=== PATIENT | female | born 1960 | race Caucasian/White ===

== ENCOUNTER 2020-08-04 18:45 | Inpatient (IN) | payer OTHER ==
[~2020-08-04] VITALS: Ht 165.1 cm; Wt 133.3 kg
[2020-08-04] MEDS ORDERED: DICYCLOMINE HCL 10 MG CAP ONE (19:23)
[2020-08-04] MEDS ORDERED: DICYCLOMINE HCL 10 MG CAP PO ONE ×2 (19:30→22:30)
[2020-08-04] MEDS ORDERED: PIPERACILLIN-TAZOB 3.375GM 100 ML IV ONE (22:00)
[2020-08-04] MEDS ORDERED: NITROGLYCERIN 0.4 MG SL TAB SL PRN (22:30)
[2020-08-04] MEDS ORDERED: DOCUSATE SOD 100 MG CAP PO PRN (22:30)
[2020-08-04] MEDS ORDERED: ACETAMINOPHEN 325 MG TAB PO PRN (22:30)
[2020-08-04] MEDS ORDERED: SODIUM CHLORIDE 0.9% 1,000 ML IV SCH (22:30)
[2020-08-04] MEDS ORDERED: MORPHINE SULF INJ 2 MG/ML SYRINGE 1ML IV PRN (22:30)
[2020-08-04 22:33] LABS: Urine Bacteria MANY /hpf (None Seen); Urine Blood Negative /uL (Negative); Urine Hyaline Cast FEW /lpf (0 - 2); Urine Mucus FEW (None Seen); Urine Specific Gravity 1.034 (1.001-1.035); Urine WBC 4 /hpf (0 - 5)
[2020-08-04 22:39] LABS: Basophils # (auto) 0 10 ^3/uL (0-0.2); Basophils % (auto) 0.5 % (0.0-2.0); Eosinophils # (auto) 0.1 10 ^3/uL (0-0.8); Eosinophils % (auto) 1.6 % (0.0-7.0); Hemoglobin 12.8 g/dL (12.2-16.2); Lymphocytes % (auto) 13.4 % (10.0-50.0); Mean Corpuscular Hemoglobin 28.9 pg (28.0-32.0); Mean Corpuscular Hgb Conc. 32.8 g/dL (32.0-36.0); Mean Corpuscular Volume 88.1 fL (80.0-100.0); Monocytes # (auto) 0.5 10 ^3/uL (0-1.3); Monocytes % (auto) 6.6 % (0.0-12.0); Neutrophils # (auto) 6.1 10 ^3/uL (1.6-8.6); Neutrophils % (auto) 77.9 % (37.0-80.0); Nucleated Red Blood Cells % 0.1 %; Platelet Count (auto) 228 10^3/uL (140-450); Red Blood Cells 4.42 10^6/uL (4.0-5.20); Red Cell Distribution Width 13.9 % (11.8-14.3); White Blood Cell 7.8 10^3/uL (4.4-10.8)
[2020-08-04] MEDS ORDERED: POTASSIUM CHL 20 Meq TABLET PO ONE (22:45)
[2020-08-04 22:48] LABS: Albumin 3.9 g/dL (3.4-5.0); Amylase 40 U/L (25-115); Anion Gap 5 (5-15); Blood Urea Nitrogen 10 mg/dL (7-18); Carbon Dioxide 28 mmol/L (21-32); Chloride 106 mmol/L (98-107); Glucose 106 mg/dL (74-106); Lipase 104 U/L (73-393); Potassium 3.3 mmol/L (3.5-5.1); Sodium 139 mmol/L (136-145)
[2020-08-04 22:52] LABS: Amphetamine Screen, Urine NEGATIVE (NEGATIVE); Barbiturate Scree,Urine NEGATIVE (NEGATIVE); Benzodiazephine Screen, Urine NEGATIVE (NEGATIVE); Cannabinoid Screen, Urine NEGATIVE (NEGATIVE); Cocaine Screen, Urine NEGATIVE (NEGATIVE); Opiate Scree,Urine POSITIVE (NEGATIVE); Phencyclidine Screen, Urine NEGATIVE (NEGATIVE)
[2020-08-04 22:54] LABS: INR 1.07 (0.9-1.15); Partial Thromboplastin Time 27.8 sec (23.0-31.2)
[2020-08-04 22:55] LABS: Alanine Aminotransferase 18 U/L (13-56); Alkaline Phosphatase 114 U/L (45-117); Aspartate Aminotransferase 11 U/L (15-37); BUN/Creatinine Ratio 12.7; Bilirubin, Total 0.6 mg/dL (0.2-1.0); GFR African American 95 mL/min; GFR Non-African American 79 mL/min; Total Protein 7.4 g/dL (6.4-8.2)
--- NOTE | 2020-08-05 00:20 | NUR ---
Patient Brought to Unit From ER Via Wheelchair Patient is AOx4 and no s/s of distress or SOB noted. Patient complains of abdominal pain of 6/10. Patient will be given PRN medication for pain as prescribed. Patient is ambulatory without any assist. Patient bed locked in lowest position and HOB at 30 degrees. POC discussed with patient, patient verbally agreed to understanding. Tele monitor is #58 and sinus rhythm in 70's/ Will continue to monitor.
[2020-08-05 01:20] VITALS: BP 140/58
[2020-08-05] MEDS: HYDROcodone-ACET 5/325MG TAB PO PRN ×4 (01:37→20:20)
[2020-08-05] MEDS: ONDANSETRON HCL 4 MG/2 ML VIAL IV PRN ×2 (01:39→09:00)
[2020-08-05] MEDS ORDERED: OMEP-411 (04:05)
[2020-08-05] MEDS ORDERED: ATOR20TA50 PO (04:05)
[2020-08-05] MEDS ORDERED: IBU600T PO (04:05)
[2020-08-05] MEDS ORDERED: LISI30TA4 PO (04:05)
[2020-08-05] MEDS ORDERED: METF-371 PO (04:05)
[2020-08-05] MEDS ORDERED: ALPR0.255 PO (04:05)
[2020-08-05] MEDS ORDERED: MET50T PO (04:05)
[2020-08-05] MEDS ORDERED: SERT-160 PO (04:05)
[2020-08-05] MEDS ORDERED: ALBU108A5 INH (04:05)
[2020-08-05 05:00] VITALS: BP 107/65
[2020-08-05] MEDS ORDERED: PIPERACILLIN-TAZOB 3.375GM 100 ML IV SCH (06:00)
--- NOTE | 2020-08-05 07:35 | NUR ---
Opening Shift Note Assumed care of patient, awake and alert bed is locked and in lowest position , bed rails up x2 , call light is within reach. No S/S of distress/SOB or pain. Instructed on POC and to call for assistance PRN, will continue to monitor for changes Q1hr and PRN.
[2020-08-05 08:17] LABS: Basophils # (auto) 0 10 ^3/uL (0-0.2); Basophils % (auto) 0.4 % (0.0-2.0); Eosinophils # (auto) 0 10 ^3/uL (0-0.8); Eosinophils % (auto) 0.9 % (0.0-7.0); Hematocrit 34.5 % (36.0-46.0); Hemoglobin 11.7 g/dL (12.2-16.2); Lymphocytes # (auto) 0.8 10 ^3/uL (0.4-5.4); Lymphocytes % (auto) 13.6 % (10.0-50.0); Mean Corpuscular Hemoglobin 29.6 pg (28.0-32.0); Mean Corpuscular Hgb Conc. 33.9 g/dL (32.0-36.0); Mean Corpuscular Volume 87.2 fL (80.0-100.0); Monocytes # (auto) 0.5 10 ^3/uL (0-1.3); Monocytes % (auto) 8.1 % (0.0-12.0); Neutrophils # (auto) 4.3 10 ^3/uL (1.6-8.6); Nucleated Red Blood Cells % 0.1 %; Platelet Count (auto) 171 10^3/uL (140-450); Red Blood Cells 3.96 10^6/uL (4.0-5.20); Red Cell Distribution Width 13.7 % (11.8-14.3); White Blood Cell 5.6 10^3/uL (4.4-10.8)
[2020-08-05 08:26] LABS: Potassium 3.8 mmol/L (3.5-5.1)
[2020-08-05 08:36] LABS: Albumin 3.2 g/dL (3.4-5.0); Bilirubin, Total 0.5 mg/dL (0.2-1.0); Calcium 8.5 mg/dL (8.5-10.1); Total Protein 6.5 g/dL (6.4-8.2)
[2020-08-05 09:00] VITALS: BP 133/60
[2020-08-05] MEDS ORDERED: DEXTROSE (50%) 50ML SYRG IV PRN (09:30)
[2020-08-05] MEDS ORDERED: cefTRIAXone 1GM/50ML D5W 50 ML IV ONE (09:30)
[2020-08-05] MEDS: PANTOPRAZOLE 40 MG/10 ML VIAL INJ IV SCH (10:15)
[2020-08-05] MEDS: ENOXAPARIN SOD 40 MG/0.4 ML SYRINGE SC SCH (10:15)
[2020-08-05] MEDS: SOD CHL 0.9%/ KCL 20MEQ 1,000 ML IV SCH (10:16)
[2020-08-05] MEDS: InsuLIN REG 1unit/0.01ml Soln (100units/ml) SC SCH ×2 (12:00→17:47)
[2020-08-05] MEDS: ACCU-CHEK COMFORT CURVE STRIP VI SCH ×2 (12:00→17:46)
[2020-08-05 13:00] VITALS: BP 133/76
[2020-08-05] MEDS: metroNIDAZOLE 500MG/100ML 100 ML IV SCH ×2 (13:54→22:02)
[2020-08-05 17:00] VITALS: BP 129/59
--- NOTE | 2020-08-05 19:30 | NUR ---
Opening Shift Note Assumed care of patient, awake and alert x4. No S/S of distress/SOB or pain. NGT to [facility], 400 cc are in the NG cannister. Soriano is in place and hung below bladder, draining yellow urine. Instructed on POC and to call for assist PRN. Call light is within reach, will continue to monitor for changes Q1hr and PRN. Addendum: 08/06/20 at 0704 by JILLIAN ADAMS RN Disregard, charted on wrong patient.
[2020-08-05 22:00] VITALS: BP 137/50
[2020-08-06] MEDS: ACCU-CHEK COMFORT CURVE STRIP VI SCH ×4 (00:01→18:00)
[2020-08-06 05:00] VITALS: BP 135/58
[2020-08-06] MEDS: InsuLIN REG 1unit/0.01ml Soln (100units/ml) SC SCH ×4 (05:55→18:00)
[2020-08-06] MEDS: HYDROcodone-ACET 5/325MG TAB PO PRN ×3 (05:55→22:10)
[2020-08-06] MEDS: metroNIDAZOLE 500MG/100ML 100 ML IV SCH ×3 (05:55→22:10)
[2020-08-06] MEDS: SOD CHL 0.9%/ KCL 20MEQ 1,000 ML IV SCH ×2 (06:43→18:50)
--- NOTE | 2020-08-06 06:59 | NUR ---
Closing note Total NG tube output 400cc of light green drainage. SNOW drain 125cc of sanguinous fluid out. NGT remains to [facility]. Call light is within reach, will endorse care to dayshift. Addendum: 08/06/20 at 0704 by JILLIAN ADAMS RN Disregard, charted on wrong patient.
--- NOTE | 2020-08-06 07:03 | NUR ---
DISREGARD CLOSING AND OPENING NOTE FOR 08/05 AND 08/06 BY THIS RN, CHARTED ON THE WRONG PATIENT.
--- NOTE | 2020-08-06 07:04 | NUR ---
Patient is resting in bed, no S/S of pain or distress, call light is within reach. Endorsed care to Kira KENT.
--- NOTE | 2020-08-06 07:05 | NUR ---
Opening Shift Note: Assumed care of patient. Patient asleep at this time. No S/S of distress/SOB or pain. Respirations even and unlabored. Bed in lowest locked position, side rails up x 2, call light within reach. Patient instructed on POC and to call for assist PRN, will continue to monitor for changes Q1hr and PRN.
[2020-08-06 09:00] VITALS: BP 138/64
[2020-08-06] MEDS: ENOXAPARIN SOD 40 MG/0.4 ML SYRINGE SC SCH (10:30)
[2020-08-06] MEDS: cefTRIAXone 1GM/50ML D5W 50 ML IV SCH (10:30)
[2020-08-06] MEDS: PANTOPRAZOLE 40 MG/10 ML VIAL INJ IV SCH (10:30)
[2020-08-06] MEDS: MORPHINE SULFATE 4 MG/ML SYR/VIAL IV PRN (11:45)
--- NOTE | 2020-08-06 12:10 | NUR ---
Dr. Dimas at bedside talking to pt.
[2020-08-06 13:10] VITALS: BP 133/61
--- NOTE | 2020-08-06 15:00 | NUR ---
IV removal IV DC'd with clean sterile technique, catheter fully intact. Pressure dressing applied to site. Patient tolerated well.
--- NOTE | 2020-08-06 15:03 | NUR ---
IV insertion IV access obtained, via clean sterile technique by inserting 22 gauge catheter at left forearm after 1 attempt. IV secured properly. No trauma to site. Patient tolerated well.
[2020-08-06 16:47] VITALS: BP 140/89
--- NOTE | 2020-08-06 19:10 | NUR ---
CLOSING NOTE: PATIENT RESTING IN BED. NO S/S OF DISTRESS.
--- NOTE | 2020-08-06 19:40 | NUR ---
Opening Shift Note Assumed care of patient, awake and alert x4. No S/S of distress/SOB or pain. Instructed on POC and to call for assist PRN. Call light is within reach, will continue to monitor for changes Q1hr and PRN.
[2020-08-06 21:00] VITALS: BP 116/54
--- NOTE | 2020-08-06 21:54 | NUR ---
IV insertion IV access obtained, via clean sterile technique by inserting 22 gauge catheter at RFA after 2 attempt(s). IV secured properly. No trauma to site. Patient tolerated well. IV removal from LFA due to pain and tenderness to site IV DC'd with clean sterile technique, catheter fully intact. Pressure dressing applied to site. Patient tolerated well.
[2020-08-07] MEDS: ACCU-CHEK COMFORT CURVE STRIP VI SCH ×4 (00:11→18:10)
[2020-08-07 05:00] VITALS: BP 143/78
--- NOTE | 2020-08-07 05:05 | NUR ---
CHG wipes completed and complete linen change done.
[2020-08-07] MEDS: InsuLIN REG 1unit/0.01ml Soln (100units/ml) SC SCH ×4 (06:00→18:11)
[2020-08-07] MEDS: metroNIDAZOLE 500MG/100ML 100 ML IV SCH ×3 (06:11→21:06)
[2020-08-07 06:39] LABS: Basophils # (auto) 0 10 ^3/uL (0-0.2); Basophils % (auto) 0.5 % (0.0-2.0); Eosinophils # (auto) 0.1 10 ^3/uL (0-0.8); Hematocrit 32.4 % (36.0-46.0); Hemoglobin 10.8 g/dL (12.2-16.2); Lymphocytes # (auto) 0.7 10 ^3/uL (0.4-5.4); Mean Corpuscular Hemoglobin 29.4 pg (28.0-32.0); Mean Corpuscular Hgb Conc. 33.3 g/dL (32.0-36.0); Monocytes # (auto) 0.4 10 ^3/uL (0-1.3); Monocytes % (auto) 9.2 % (0.0-12.0); Neutrophils # (auto) 2.7 10 ^3/uL (1.6-8.6); Neutrophils % (auto) 70.3 % (37.0-80.0); Platelet Count (auto) 173 10^3/uL (140-450); Red Blood Cells 3.68 10^6/uL (4.0-5.20); Red Cell Distribution Width 14.1 % (11.8-14.3); White Blood Cell 3.9 10^3/uL (4.4-10.8)
[2020-08-07 06:50] LABS: INR 1.07 (0.9-1.15); Partial Thromboplastin Time 28.3 sec (23.0-31.2)
--- NOTE | 2020-08-07 06:55 | NUR ---
Spoke with Christina in pre-op, Milady is planning on doing a laparoscopic cholecystectomy possible open at 1000.
[2020-08-07 07:11] LABS: Albumin 2.9 g/dL (3.4-5.0); BUN/Creatinine Ratio 4.6; Bilirubin, Total 0.4 mg/dL (0.2-1.0); Calcium 8.4 mg/dL (8.5-10.1); Potassium 3.4 mmol/L (3.5-5.1); Total Protein 6.5 g/dL (6.4-8.2)
--- NOTE | 2020-08-07 07:30 | NUR ---
Opening Shift Note: Assumed care of patient, awake and alert. No S/S of distress/SOB. Bed in lowest locked position, side rails up x 2, call light within reach. Patient NPO at this time for procedure. Patient instructed on POC and to call for assist PRN, will continue to monitor for changes Q1hr and PRN.
[2020-08-07] MEDS: cefTRIAXone 1GM/50ML D5W 50 ML IV SCH (08:19)
[2020-08-07] MEDS: MORPHINE SULFATE 4 MG/ML SYR/VIAL IV PRN ×3 (08:19→21:00)
--- NOTE | 2020-08-07 08:40 | NUR ---
SPOKE WITH DR. GUADARRAMA. NEW ORDERS PLACED. SPOKE WITH HYDRAULIC MODELING ENGINEERYOLI RODRIGUEZ REGARDING NEW MED ORDERS. OKAY TO WAIT UNTIL AFTER PROCEDURE TO GIVE POTASSIUM.
[2020-08-07] MEDS ORDERED: POTASSIUM CHLORIDE 20 MEQ, LIDOCAINE 1% (LOCAL ANESTH.) 2 ML in SODIUM CHL 0.9% 100 ML IV ONE (08:45)
[2020-08-07] MEDS: PANTOPRAZOLE 40 MG/10 ML VIAL INJ IV SCH (08:46)
[2020-08-07] MEDS: ENOXAPARIN SOD 40 MG/0.4 ML SYRINGE SC SCH (08:46)
--- NOTE | 2020-08-07 09:45 | NUR ---
PATIENT TAKEN DOWN TO OR AT THIS TIME. STEAM CONDITIONER OPERATORYOLI RODRIGUEZ AWARE THAT SURGICAL CONSENTS ARE NOT SIGNED AT THIS TIME.
[2020-08-07] MEDS ORDERED: SUCCINYLCHOLINE CHLORIDE 20 MG/ML 10ML VIAL IV ONE (10:16)
[2020-08-07] MEDS ORDERED: ROCURONIUM 10MG/ML 10ML VIAL IV ONE (10:21)
[2020-08-07] MEDS ORDERED: PROPOFOL 10 MG/ML 20 ML IV ONE (10:21)
[2020-08-07] MEDS ORDERED: MIDAZOLAM HCL 1MG/1ML-2 ML VIAL ONE (10:21)
[2020-08-07] MEDS ORDERED: GLYCOPYRROLATE 0.2 MG/ML 1ML VIAL ONE (10:21)
[2020-08-07] MEDS ORDERED: fentaNYL CITRATE 100 MCG/2 ML VL ONE (10:21)
[2020-08-07] MEDS ORDERED: NEOSTIGMINE 1 MG/ML INJ (10mg/10ML VIAL) ONE (10:21)
[2020-08-07] MEDS ORDERED: ONDANSETRON HCL 4 MG/2 ML VIAL ONE (10:21)
[2020-08-07] MEDS ORDERED: MEPERIDINE HCL (25 MG/ML) 1ML VIAL ONE (10:21)
[2020-08-07] MEDS ORDERED: SODIUM CHLORIDE LOCK 10 ML ONE (10:21)
[2020-08-07] MEDS ORDERED: DexAMETHasone SOD PHOS 10MG/1ML VIAL INJ ONE (11:10)
--- NOTE | 2020-08-07 11:20 | NUR ---
Nutrition Assessment Est energy needs [id number] kcal (14-18 kcal/kg BW 99.8kg) Est protein needs 57-74g (1-1.3g/kg IBW 57kg) Will monitor and reassess prn. Addendum: 08/07/20 at [address] Amended: Links added.
--- NOTE | 2020-08-07 11:44 | NUR ---
PATIENT TRANSFERRED TO FLOOR BY TWO OR STAFF. PATIENT ASSESSED AT THIS TIME. TWO INCISIONS, MEDIAL ABDOMEN, SNOW DRAIN TO THE MEDIAL RIGHT SIDE. 90 ML DRAINED AT THIS TIME. CALL LIGHT IN REACH, BED ALARM ACTIVATED FOR PATIENT SAFETY. PATIENT EDUCATED TO CALL WHEN SHE NEEDS TO AMBULATED.
[2020-08-07] MEDS ORDERED: HYDROmorphone HCL 2 MG/ML VL ONE (11:54)
[2020-08-07] MEDS: HYDROmorphone HCL 2 MG/ML VL IV PRN ×3 (11:57→12:30)
[2020-08-07] MEDS ORDERED: MORPHINE SULFATE 4 MG/ML SYR/VIAL IV PRN (12:00)
[2020-08-07] MEDS ORDERED: METOCLOPRAMIDE HCL 5MG/ml INJ 2ml VIAL IV PRN (12:00)
[2020-08-07 13:00] VITALS: BP 155/62
[2020-08-07] MEDS: SOD CHL 0.9%/ KCL 20MEQ 1,000 ML IV SCH (14:57)
[2020-08-07] MEDS: HYDROcodone-ACET 5/325MG TAB PO PRN (14:58)
--- NOTE | 2020-08-07 15:47 | NUR ---
PATIENT REFUSING ABDOMINAL BINDER AT THIS TIME. PATIENT EDUCATED ON NEED FOR BINDER AT THIS TIME, PATIENT CONTINUALLY REFUSING.
--- NOTE | 2020-08-07 16:04 | NUR ---
SNOW DRAIN EMPTIED 90 ML BRIGHT RED BLOOD FROM SNOW DRAIN AT THIS TIME.
--- NOTE | 2020-08-07 16:31 | NUR ---
SNOW DRAIN 90 ML BLOOD EMPTIED FROM SNOW DRAIN AT THIS TIME. PATIENT HAS NOTED BLEEDING ON BANDAGE AROUND SITE OF DRAIN. SPOKE WITH CORPORATE TRAVEL AGENT AND PAGED DR. GEORGE AT THIS TIME. AWAITING CALL BACK.
--- NOTE | 2020-08-07 16:53 | NUR ---
SPOKE WITH MD RECEIVED CALL FROM DR. GEORGE AT THIS TIME. PER MD PLACE BINDER BACK ON PATIENT. MONITOR SNOW DRAIN OUTPUT.
[2020-08-07 17:00] VITALS: BP 154/70
--- NOTE | 2020-08-07 18:15 | NUR ---
SNOW DRAIN 90 ML OUTPUT. PATIENT PLACED BACK IN ABDOMINAL BINDER AND DRESSING AROUND SNOW REINFORCED. WILL CONTINUE TO MONITOR.
--- NOTE | 2020-08-07 18:49 | NUR ---
CLOSING NOTE: PATIENT RESTING IN BED. NO S/S OF DISTRESS. SNOW DRAINED AT THIS TIME, 50 ML
[2020-08-07 21:00] VITALS: BP 166/77
[2020-08-07] MEDS: METOPROLOL TARTRATE 50 MG TAB PO SCH (22:30)
[2020-08-08] MEDS: ACCU-CHEK COMFORT CURVE STRIP VI SCH ×5 (00:06→23:52)
[2020-08-08] MEDS: InsuLIN REG 1unit/0.01ml Soln (100units/ml) SC SCH ×5 (00:24→23:53)
[2020-08-08] MEDS: MORPHINE SULFATE 4 MG/ML SYR/VIAL IV PRN ×2 (00:59→04:47)
[2020-08-08] MEDS: SOD CHL 0.9%/ KCL 20MEQ 1,000 ML IV SCH ×2 (04:41→20:50)
[2020-08-08 05:00] VITALS: BP 188/87
[2020-08-08] MEDS: metroNIDAZOLE 500MG/100ML 100 ML IV SCH ×3 (06:55→22:06)
--- NOTE | 2020-08-08 07:13 | NUR ---
SNOW drain 250 out
[2020-08-08 07:28] VITALS: BP 122/68
--- NOTE | 2020-08-08 07:29 | NUR ---
BP reassessed after patient was medicated for pain and after ambulating back to bed from restroom and relaxing. New BP 122/68, HR 64. Care endorsed to day shift RN.
--- NOTE | 2020-08-08 08:57 | NUR ---
Unable to scan Morphine 2 mg IV push due to computer error, patient c/o of pain 10/10 to abdomen Morphine 2 mg given at 0857.
[2020-08-08] MEDS: PANTOPRAZOLE 40 MG/10 ML VIAL INJ IV SCH (09:19)
[2020-08-08 09:20] LABS: Basophils # (auto) 0 10 ^3/uL (0-0.2); Basophils % (auto) 0.1 % (0.0-2.0); Eosinophils # (auto) 0 10 ^3/uL (0-0.8); Hematocrit 32.1 % (36.0-46.0); Hemoglobin 10.9 g/dL (12.2-16.2); Lymphocytes # (auto) 0.3 10 ^3/uL (0.4-5.4); Lymphocytes % (auto) 3.9 % (10.0-50.0); Mean Corpuscular Hemoglobin 29.8 pg (28.0-32.0); Mean Corpuscular Hgb Conc. 33.8 g/dL (32.0-36.0); Monocytes # (auto) 0.5 10 ^3/uL (0-1.3); Monocytes % (auto) 6.5 % (0.0-12.0); Neutrophils # (auto) 6.4 10 ^3/uL (1.6-8.6); Neutrophils % (auto) 89.5 % (37.0-80.0); Nucleated Red Blood Cells % 0.1 %; Platelet Count (auto) 233 10^3/uL (140-450); Red Blood Cells 3.64 10^6/uL (4.0-5.20); Red Cell Distribution Width 13.4 % (11.8-14.3); White Blood Cell 7.1 10^3/uL (4.4-10.8)
[2020-08-08] MEDS: LISINOPRIL 20 MG TAB PO SCH (09:20)
[2020-08-08] MEDS: cefTRIAXone 1GM/50ML D5W 50 ML IV SCH (09:20)
[2020-08-08] MEDS: METOPROLOL TARTRATE 50 MG TAB PO SCH ×3 (09:20→23:52)
[2020-08-08] MEDS: ENOXAPARIN SOD 40 MG/0.4 ML SYRINGE SC SCH (09:20)
[2020-08-08 10:44] VITALS: BP 150/70
[2020-08-08] MEDS: HYDROmorphone HCL 2 MG/ML VL IV PRN ×3 (12:48→21:40)
--- NOTE | 2020-08-08 14:31 | NUR ---
SNOW DRAIN 90 ML BLOOD EMPTIED FROM SNOW DRAIN AT THIS TIME.
--- NOTE | 2020-08-08 17:00 | NUR ---
SNOW DRAIN 90 ML BLOOD EMPTIED FROM SNOW DRAIN AT THIS TIME.
[2020-08-08 18:04] VITALS: BP 152/78
--- NOTE | 2020-08-08 18:30 | NUR ---
SNOW DRAIN 60 ML BLOOD EMPTIED FROM SNOW DRAIN AT THIS TIME.
--- NOTE | 2020-08-08 18:38 | NUR ---
Total out put from SNOW 240 ml of dark red blood.
--- NOTE | 2020-08-08 19:00 | NUR ---
Opening Shift Note Assumed care of patient, awake and alert. No S/S of distress/SOB or pain. Bed in low locked position, call light within reach. siderails x2 up. Instructed on POC and to call for assist PRN, will continue to monitor for changes Q1hr and PRN.
[2020-08-08 21:43] VITALS: BP 126/63
--- NOTE | 2020-08-08 21:45 | NUR ---
SNOW DRAIN 90 ML BLOOD EMPTIED FROM SNOW DRAIN AT THIS TIME.
[2020-08-09] MEDS: HYDROmorphone HCL 2 MG/ML VL IV PRN ×4 (01:37→21:42)
--- NOTE | 2020-08-09 01:49 | NUR ---
SNOW DRAIN 90 ML BLOOD EMPTIED FROM SNOW DRAIN AT THIS TIME.
[2020-08-09] MEDS: metroNIDAZOLE 500MG/100ML 100 ML IV SCH ×3 (05:16→21:42)
[2020-08-09] MEDS: InsuLIN REG 1unit/0.01ml Soln (100units/ml) SC SCH ×4 (05:16→23:54)
[2020-08-09] MEDS: ACCU-CHEK COMFORT CURVE STRIP VI SCH ×4 (05:16→23:54)
[2020-08-09] MEDS: HYDROcodone-ACET 7.5/325MG TAB PO PRN ×2 (06:07→10:10)
--- NOTE | 2020-08-09 07:40 | NUR ---
Opening Shift Note Assumed care of patient, awake and alert. No S/S of distress/SOB or pain. Bed in low locked position, call light within reach. side rails x2 up. Instructed on POC and to call for assist PRN, will continue to monitor for changes Q1hr and PRN.
[2020-08-09 09:00] VITALS: BP 135/67
[2020-08-09] MEDS: cefTRIAXone 1GM/50ML D5W 50 ML IV SCH (09:02)
[2020-08-09] MEDS: ENOXAPARIN SOD 40 MG/0.4 ML SYRINGE SC SCH (09:03)
[2020-08-09] MEDS: LISINOPRIL 20 MG TAB PO SCH (09:03)
[2020-08-09] MEDS: METOPROLOL TARTRATE 50 MG TAB PO SCH ×2 (09:04→21:43)
[2020-08-09] MEDS: PANTOPRAZOLE 40 MG/10 ML VIAL INJ IV SCH (09:04)
--- NOTE | 2020-08-09 09:10 | NUR ---
SNOW DRAIN 90 ML BLOOD EMPTIED FROM SNOW DRAIN AT THIS TIME.
[2020-08-09 09:29] LABS: Basophils # (auto) 0 10 ^3/uL (0-0.2); Basophils % (auto) 0.3 % (0.0-2.0); Eosinophils # (auto) 0.1 10 ^3/uL (0-0.8); Eosinophils % (auto) 1.3 % (0.0-7.0); Hematocrit 30.5 % (36.0-46.0); Hemoglobin 9.8 g/dL (12.2-16.2); Lymphocytes % (auto) 17.3 % (10.0-50.0); Mean Corpuscular Hemoglobin 28.6 pg (28.0-32.0); Mean Corpuscular Hgb Conc. 32.1 g/dL (32.0-36.0); Mean Corpuscular Volume 89.2 fL (80.0-100.0); Monocytes # (auto) 0.5 10 ^3/uL (0-1.3); Monocytes % (auto) 8.5 % (0.0-12.0); Neutrophils # (auto) 4.3 10 ^3/uL (1.6-8.6); Neutrophils % (auto) 72.6 % (37.0-80.0); Nucleated Red Blood Cells % 0.1 %; Platelet Count (auto) 234 10^3/uL (140-450); Red Blood Cells 3.42 10^6/uL (4.0-5.20); White Blood Cell 5.9 10^3/uL (4.4-10.8)
--- NOTE | 2020-08-09 12:00 | NUR ---
SNOW DRAIN 90 ML BLOOD EMPTIED FROM SNOW DRAIN AT THIS TIME.
[2020-08-09 13:00] VITALS: BP 146/64
--- NOTE | 2020-08-09 14:20 | NUR ---
SNOW DRAIN 90 ML BLOOD EMPTIED FROM SNOW DRAIN AT THIS TIME.
--- NOTE | 2020-08-09 14:20 | NUR ---
PATIENT DOWN GRADED TO MED SURG TELE SENT TO ICU.
--- NOTE | 2020-08-09 16:42 | NUR ---
Nutrition Followup Notes Pt wt is 121.8 kg Pt is with a Clear Liquid diet, appetite is poor aeb ave 38% x6 PO intake per RN doc. Per RN note, pt is with no s/s of distress or pain. Est energy needs [id number] kcal (14-18 kcal/kg BW 99.8kg) Est protein needs 57-74g (1-1.3g/kg IBW 57kg) Will monitor and reassess prn. LABS: CA 8.4 L. ALB 2.9 L GI: Pt had 1 BM on 08/08 per RN doc. BS: 20 low risk. Refer to wound assessment report for further details PES: Obesity r/t caloric intake in excess of needs aeb pt with BMI of 36.6kg/m2 Inadequate oral intake r/t current medical condition aeb pt with 25-50% po intake of liquid diet per RN note Comments Will continue to monitor PO status, skin status, pertinent labs and weight trends. Will f/u in 2-3 days 1) Continue to monitor po status, labs, skin 2) Refer pt to OPD on DC 3) Continue current plan of care
--- NOTE | 2020-08-09 16:54 | NUR ---
IV INSERTION AND REMOVAL IV removal IV DC'd with clean sterile technique, catheter fully intact. Pressure dressing applied to site. Patient tolerated well. NOTE: [RIGHT FOREARM IV LEAKING] IV insertion IV access obtained, via clean sterile technique by inserting 22 gauge catheter at LEFT FOREARM after 2 attempt(s). IV secured properly. No trauma to site. Patient tolerated procedure well.
[2020-08-09 17:00] VITALS: BP 139/69
--- NOTE | 2020-08-09 17:09 | NUR ---
SNOW DRAIN 90 ML BLOOD EMPTIED FROM SNOW DRAIN AT THIS TIME.
--- NOTE | 2020-08-09 20:20 | NUR ---
Opening Shift Note Assumed care of patient, awake and alert. No S/S of distress/SOB or pain. Instructed on POC and to call for assist PRN, will continue to monitor for changes Q1hr and PRN. SNOW drain and abdominal incision clean, dry, and intact. Bed locked and in lowest position with call light in reach.
[2020-08-09 22:00] VITALS: BP 110/54
--- NOTE | 2020-08-10 01:43 | NUR ---
SNOW Drain Emptied 150mL of bright red blood from the SNOW drain Addendum: 08/10/20 at 0615 by GABRIELA DE LA TORRE RN RN dark red blood
[2020-08-10] MEDS: HYDROmorphone HCL 2 MG/ML VL IV PRN ×2 (02:33→08:44)
--- NOTE | 2020-08-10 05:30 | NUR ---
SNOW Drain Emptied 120mL of dark red blood from the SNOW drain
[2020-08-10] MEDS: metroNIDAZOLE 500MG/100ML 100 ML IV SCH (05:33)
[2020-08-10] MEDS: ACCU-CHEK COMFORT CURVE STRIP VI SCH ×2 (05:34→12:04)
[2020-08-10] MEDS: InsuLIN REG 1unit/0.01ml Soln (100units/ml) SC SCH ×2 (05:35→12:00)
[2020-08-10 05:45] VITALS: BP 125/35
[2020-08-10] MEDS: HYDROcodone-ACET 7.5/325MG TAB PO PRN ×2 (05:54→12:51)
[2020-08-10] MEDS: cefTRIAXone 1GM/50ML D5W 50 ML IV SCH (08:44)
[2020-08-10 09:00] VITALS: BP 131/53
[2020-08-10] MEDS: ENOXAPARIN SOD 40 MG/0.4 ML SYRINGE SC SCH (09:25)
[2020-08-10] MEDS: LISINOPRIL 20 MG TAB PO SCH (09:26)
[2020-08-10] MEDS: METOPROLOL TARTRATE 50 MG TAB PO SCH (09:26)
[2020-08-10 12:21] VITALS: BP 131/53
--- NOTE | 2020-08-10 13:21 | NUR ---
200 CC EMPTIED FROM SNOW DRAIN. DISCHARGE INSTRUCTIONS GIVEN TO PT. PT VERBALIZED UNDERSTANDING. IV REMOVED. SPECIMEN CUP SENT HOME WITH PT FOR DRAIN EMPTYING/MEASUREMENT. ALL PAPERWORK SIGNED. PT DISCHARGED HOME WITH SNOW DRAIN INTACT.
== END 2020-08-10 13:15 | disposition home or self-care (01) | DRG 263 ==
LOC: ER 18:45 → TELE-WESTW 18:46 → WEST WING 08-09 14:20
PROVIDERS: ADMIT Nurse Practitioner Family; ATTEND Internal Medicine
PROC: 0FT44ZZ Resection of Gallbladder, Percutaneous Endoscopic Approach (ICD-10-PCS; principal; 2020-08-07 10:22)
DX: K80.00 Calculus of gallbladder with acute cholecystitis without obstruction (principal); N39.0 Urinary tract infection, site not specified; E87.6 Hypokalemia; I10 Essential (primary) hypertension; E66.01 Morbid (severe) obesity due to excess calories; E11.9 Type 2 diabetes mellitus without complications; Z20.828 Contact with and (suspected) exposure to other viral communicable diseases; J45.909 Unspecified asthma, uncomplicated; K76.0 Fatty (change of) liver, not elsewhere classified; Z90.710 Acquired absence of both cervix and uterus; F32.9 Major depressive disorder, single episode, unspecified; Z68.36 Body mass index [BMI] 36.0-36.9, adult
CPT/HCPCS: 36415; 71045; 74176; 76700; 80053; 80307; 81001; 82150; 82247; 82962; 83690; 83735; 84132; 84484; 85025; 85610; 85730; 86850; 86900; 86901; 87086; 96365; C9113; G0378; J0330; J0696; J1100; J1815; J2001; J2250; J2405; J2543; J2704; J3490

== ENCOUNTER 2021-04-10 10:37 | Inpatient (IN) | payer OTHER ==
[~2021-04-10] VITALS: Ht 167.6 cm; Wt 129.3 kg
[~2021-04-10 10:37] MED LIST: ALBU108A5 INH; ALPR0.255 PO; ATOR20TA50 PO; IBUP600T28 PO; LISI30TA4 PO; MECLIZINE HCL 25 MG TAB PO PRN; MET50T PO; METF-371 PO; OMEP-411; SERT-160 PO
[2021-04-10 12:03] LABS: Basophils # (auto) 0 10 ^3/uL (0-0.2); Basophils % (auto) 0.9 % (0.0-2.0); Eosinophils # (auto) 0.4 10 ^3/uL (0-0.8); Eosinophils % (auto) 8.4 % (0.0-7.0); Hematocrit 36.8 % (36.0-46.0); Hemoglobin 12.6 g/dL (12.2-16.2); Lymphocytes # (auto) 0.8 10 ^3/uL (0.4-5.4); Lymphocytes % (auto) 15.7 % (10.0-50.0); Mean Corpuscular Hemoglobin 29.9 pg (28.0-32.0); Mean Corpuscular Hgb Conc. 34.1 g/dL (32.0-36.0); Mean Corpuscular Volume 87.6 fL (80.0-100.0); Monocytes # (auto) 0.3 10 ^3/uL (0-1.3); Monocytes % (auto) 6.8 % (0.0-12.0); Neutrophils # (auto) 3.5 10 ^3/uL (1.6-8.6); Neutrophils % (auto) 68.2 % (37.0-80.0); Red Cell Distribution Width 14.5 % (11.8-14.3); White Blood Cell 5.1 10^3/uL (4.4-10.8)
[2021-04-10 12:26] LABS: Alanine Aminotransferase 24 U/L (13-56); Anion Gap 2 (5-15); Aspartate Aminotransferase 20 U/L (15-37); Blood Urea Nitrogen 23 mg/dL (7-18); Calcium 9.1 mg/dL (8.5-10.1); Carbon Dioxide 29 mmol/L (21-32); Chloride 108 mmol/L (98-107); Glucose 117 mg/dL (74-106); Potassium 4.3 mmol/L (3.5-5.1); Sodium 139 mmol/L (136-145)
[2021-04-10 12:31] LABS: Alkaline Phosphatase 84 U/L (45-117); BUN/Creatinine Ratio 19.8; Bilirubin, Total 0.4 mg/dL (0.2-1.0); GFR African American 61 mL/min; GFR Non-African American 50 mL/min
[2021-04-10 13:51] LABS: Urine Bacteria FEW /hpf (None Seen); Urine Blood Negative /uL (Negative); Urine Mucus FEW (None Seen); Urine Specific Gravity 1.018 (1.001-1.035); Urine WBC 3 /hpf (0 - 5)
[2021-04-10] MEDS ORDERED: MORPHINE SULF INJ 2 MG/ML SYRINGE 1ML IV PRN ×3 (16:45→20:15)
[2021-04-10] MEDS ORDERED: NITROGLYCERIN 0.4 MG SL TAB SL PRN ×2 (16:45→20:15)
[2021-04-10] MEDS ORDERED: ALBUTEROL SULF 2.5 MG/0.5ML(0.5%) NEB SOLN NEB PRN (20:15)
[2021-04-10] MEDS ORDERED: hydrALAZINE HCL 20 MG/ML VL IV PRN (20:15)
[2021-04-10] MEDS ORDERED: ALUM & MAG HYDROX-SIMETH LIQ(MAALOX) 30 ML PO PRN (20:15)
[2021-04-10] MEDS ORDERED: SODIUM CHLORIDE 0.9% 2,000 ML IV ONE (20:15)
[2021-04-10] MEDS ORDERED: DOCUSATE SOD 100 MG CAP PO PRN (20:15)
[2021-04-10] MEDS ORDERED: LORazepam 0.5 MG TAB PO PRN (20:15)
[2021-04-10] MEDS ORDERED: DEXTROSE (50%) 50ML SYRG IV PRN (20:15)
[2021-04-10] MEDS ORDERED: ONDANSETRON HCL 4 MG/2 ML VIAL IV PRN (20:15)
[2021-04-10] MEDS ORDERED: ACETAMINOPHEN 325 MG TAB PO PRN (20:15)
[2021-04-10] MEDS ORDERED: IPRATROPIUM BROM 0.5 MG/2.5ML INH SOL NEB PRN (20:30)
[2021-04-10 20:32] VITALS: BP 140/42
[2021-04-10 21:30] VITALS: BP 155/72
[2021-04-10] MEDS ORDERED: MECLIZINE HCL 25 MG TAB PO ONE (21:45)
[2021-04-10] MEDS ORDERED: PANTOPRAZOLE 40 MG/10 ML VIAL INJ IV ONE (22:00)
[2021-04-10] MEDS ORDERED: SUCRALFATE 1 GM/10 ML ORAL SUSP PO ONE (22:00)
[2021-04-10] MEDS ORDERED: IPRATROPIUM BROM 0.5 MG/2.5ML INH SOL NEB SCH (22:00)
[2021-04-10] MEDS: InsuLIN REG 1unit/0.01ml Soln (100units/ml) SC SCH (22:37)
[2021-04-10] MEDS: MONTELUKAST SODIUM 10 MG TAB PO SCH (22:42)
[2021-04-10] MEDS: ATORVASTATIN 20 MG TAB PO SCH (22:42)
[2021-04-10] MEDS: METOPROLOL TARTRATE 50 MG TAB PO SCH (22:43)
[2021-04-10] MEDS: ACCU-CHEK COMFORT CURVE STRIP VI SCH (22:44)
[2021-04-10 23:11] VITALS: BP 155/72
[2021-04-10 23:41] LABS: Anion Gap 5 (5-15); Blood Urea Nitrogen 23 mg/dL (7-18); Calcium 9.2 mg/dL (8.5-10.1); Carbon Dioxide 27 mmol/L (21-32); Chloride 107 mmol/L (98-107); Glucose 128 mg/dL (74-106); Potassium 3.9 mmol/L (3.5-5.1); Sodium 139 mmol/L (136-145)
[2021-04-10 23:46] LABS: BUN/Creatinine Ratio 20.4; Cholesterol 148 mg/dL (< 200); GFR African American 63 mL/min; GFR Non-African American 52 mL/min; HDL Cholesterol 43 mg/dL (40-59); LDL Cholesterol 72 mg/dL (< 100); Triglycerides 224 mg/dL (< 150)
[2021-04-10 23:54] LABS: Alcohol, Urine < 3.0 mg/dL (0-10); Amphetamine Screen, Urine NEGATIVE (NEGATIVE); Barbiturate Scree,Urine NEGATIVE (NEGATIVE); Benzodiazephine Screen, Urine NEGATIVE (NEGATIVE); Cannabinoid Screen, Urine NEGATIVE (NEGATIVE); Cocaine Screen, Urine NEGATIVE (NEGATIVE); Opiate Scree,Urine NEGATIVE (NEGATIVE); Phencyclidine Screen, Urine NEGATIVE (NEGATIVE)
[2021-04-11 00:35] LABS: Basophils # (auto) 0.1 10 ^3/uL (0-0.2); Basophils % (auto) 0.9 % (0.0-2.0); Eosinophils # (auto) 0.3 10 ^3/uL (0-0.8); Eosinophils % (auto) 5.1 % (0.0-7.0); Hematocrit 34.5 % (36.0-46.0); Hemoglobin 11.8 g/dL (12.2-16.2); Lymphocytes # (auto) 1.3 10 ^3/uL (0.4-5.4); Lymphocytes % (auto) 21.1 % (10.0-50.0); Mean Corpuscular Hemoglobin 30.3 pg (28.0-32.0); Mean Corpuscular Hgb Conc. 34.3 g/dL (32.0-36.0); Mean Corpuscular Volume 88.4 fL (80.0-100.0); Monocytes # (auto) 0.5 10 ^3/uL (0-1.3); Monocytes % (auto) 7.5 % (0.0-12.0); Neutrophils # (auto) 4.1 10 ^3/uL (1.6-8.6); Neutrophils % (auto) 65.4 % (37.0-80.0); Nucleated Red Blood Cells % 0.2 %; Red Cell Distribution Width 14.3 % (11.8-14.3); White Blood Cell 6.3 10^3/uL (4.4-10.8)
[2021-04-11] MEDS: SODIUM CHLORIDE 0.9% 1,000 ML IV SCH ×4 (00:49→22:06)
[2021-04-11 05:50] VITALS: BP 130/72
[2021-04-11] MEDS ORDERED: MECLIZINE HCL 25 MG TAB PO PRN (06:00)
[2021-04-11] MEDS: SUCRALFATE 1 GM/10 ML ORAL SUSP PO SCH ×4 (06:45→22:06)
[2021-04-11] MEDS: ACCU-CHEK COMFORT CURVE STRIP VI SCH ×4 (06:45→22:07)
[2021-04-11] MEDS: InsuLIN REG 1unit/0.01ml Soln (100units/ml) SC SCH ×4 (06:45→21:55)
[2021-04-11] MEDS: SERTRALINE HCL 50 MG TAB PO SCH (08:48)
[2021-04-11] MEDS: HYDROcodone-ACET 5/325MG TAB PO PRN ×2 (08:48→22:08)
[2021-04-11] MEDS: levoFLOXacin 500MG 100 ML IV SCH (08:48)
[2021-04-11] MEDS: ENOXAPARIN SOD 40 MG/0.4 ML SYRINGE SC SCH (08:49)
[2021-04-11] MEDS: METOPROLOL TARTRATE 50 MG TAB PO SCH ×2 (08:50→22:07)
[2021-04-11 09:00] VITALS: BP 144/68
[2021-04-11 12:30] VITALS: BP 114/46
[2021-04-11 16:56] VITALS: BP 144/68
[2021-04-11] MEDS ORDERED: LORazepam 2MG/ML-1ML VIAL IV PRN (20:30)
[2021-04-11 22:00] VITALS: BP 119/60
[2021-04-11] MEDS: ATORVASTATIN 20 MG TAB PO SCH (22:06)
[2021-04-11] MEDS: PANTOPRAZOLE 40 MG/10 ML VIAL INJ IV SCH (22:06)
[2021-04-11] MEDS: MONTELUKAST SODIUM 10 MG TAB PO SCH (22:07)
[2021-04-12 05:00] VITALS: BP 127/64
[2021-04-12 06:22] LABS: Potassium 3.8 mmol/L (3.5-5.1)
[2021-04-12] MEDS: SODIUM CHLORIDE 0.9% 1,000 ML IV SCH (06:26)
[2021-04-12] MEDS: ACCU-CHEK COMFORT CURVE STRIP VI SCH ×4 (06:26→22:50)
[2021-04-12] MEDS: InsuLIN REG 1unit/0.01ml Soln (100units/ml) SC SCH ×4 (06:26→22:00)
[2021-04-12] MEDS: SUCRALFATE 1 GM/10 ML ORAL SUSP PO SCH ×4 (06:26→22:49)
[2021-04-12 06:28] LABS: BUN/Creatinine Ratio 19.1; Calcium 9.1 mg/dL (8.5-10.1)
[2021-04-12 09:00] VITALS: BP 139/71
[2021-04-12] MEDS: SERTRALINE HCL 50 MG TAB PO SCH (09:45)
[2021-04-12] MEDS: levoFLOXacin 500MG 100 ML IV SCH (09:45)
[2021-04-12] MEDS: ENOXAPARIN SOD 40 MG/0.4 ML SYRINGE SC SCH (09:46)
[2021-04-12] MEDS: METOPROLOL TARTRATE 50 MG TAB PO SCH ×2 (09:46→22:00)
[2021-04-12] MEDS ORDERED: MECL25TA18 PO (12:18)
[2021-04-12 13:00] VITALS: BP 128/76
[2021-04-12] MEDS: HYDROcodone-ACET 5/325MG TAB PO PRN (16:13)
[2021-04-12 17:00] VITALS: BP 103/60
[2021-04-12 22:00] VITALS: BP 107/60
[2021-04-12] MEDS: PANTOPRAZOLE 40 MG/10 ML VIAL INJ IV SCH (22:49)
[2021-04-12] MEDS: ATORVASTATIN 20 MG TAB PO SCH (22:50)
[2021-04-12] MEDS: MONTELUKAST SODIUM 10 MG TAB PO SCH (22:50)
[2021-04-13 05:00] VITALS: BP 129/70
[2021-04-13] MEDS: ACCU-CHEK COMFORT CURVE STRIP VI SCH ×2 (06:48→11:42)
[2021-04-13] MEDS: SUCRALFATE 1 GM/10 ML ORAL SUSP PO SCH ×2 (06:49→11:42)
[2021-04-13] MEDS: InsuLIN REG 1unit/0.01ml Soln (100units/ml) SC SCH ×2 (06:49→11:30)
[2021-04-13 08:00] VITALS: BP 125/66
[2021-04-13] MEDS: METOPROLOL TARTRATE 50 MG TAB PO SCH (10:10)
[2021-04-13] MEDS: SERTRALINE HCL 50 MG TAB PO SCH (10:11)
[2021-04-13] MEDS: ENOXAPARIN SOD 40 MG/0.4 ML SYRINGE SC SCH (10:11)
[2021-04-13] MEDS: HYDROcodone-ACET 5/325MG TAB PO PRN (10:13)
[2021-04-13 12:30] VITALS: BP 142/83
[2021-04-13 15:32] VITALS: BP 142/83
== END 2021-04-13 16:20 | disposition home or self-care (01) | DRG 111 ==
LOC: ER 10:37 → TELE 16:46 → TELE-WESTW 20:35
PROVIDERS: ADMIT Hospitalist; ATTEND Internal Medicine Nephrology
DX: H81.10 Benign paroxysmal vertigo, unspecified ear (principal); N17.9 Acute kidney failure, unspecified; E11.22 Type 2 diabetes mellitus with diabetic chronic kidney disease; K31.84 Gastroparesis; E11.43 Type 2 diabetes mellitus with diabetic autonomic (poly)neuropathy; E66.01 Morbid (severe) obesity due to excess calories; K21.9 Gastro-esophageal reflux disease without esophagitis; F32.9 Major depressive disorder, single episode, unspecified; F41.9 Anxiety disorder, unspecified; N18.2 Chronic kidney disease, stage 2 (mild); J45.909 Unspecified asthma, uncomplicated; I12.9 Hypertensive chronic kidney disease with stage 1 through stage 4 chronic kidney disease, or unspecified chronic kidney disease; K29.00 Acute gastritis without bleeding; E66.9 Obesity, unspecified; Z20.822 Contact with and (suspected) exposure to COVID-19; E78.5 Hyperlipidemia, unspecified; Z80.8 Family history of malignant neoplasm of other organs or systems; Z85.42 Personal history of malignant neoplasm of other parts of uterus; Z85.841 Personal history of malignant neoplasm of brain; Z90.49 Acquired absence of other specified parts of digestive tract; Z90.711 Acquired absence of uterus with remaining cervical stump; Z68.42 Body mass index [BMI] 45.0-49.9, adult
CPT/HCPCS: 36415; 70450; 70551; 80048; 80053; 80061; 80307; 81001; 82962; 83036; 84484; 85025; 87040; 87086; 87426; 93005; 93306; 97163; C9113; G0378; J1815; J1956